=== PATIENT | female | born 1995 | race Caucasian/White ===

== ENCOUNTER 2016-07-17 10:14 | Emergency (ER) | payer MEDICAID ==
[~2016-07-17] VITALS: Ht 170.2 cm; Wt 87.7 kg
[2016-07-17 12:59] LABS: BASOPHIL % 0.1 % (0-2); PLATELET COUNT 277 x10^3mcL (130-400)
[2016-07-17 13:12] LABS: CALCIUM 8.6 mg/dL (8.5-10.1); CARBON DIOXIDE 27.3 mmol/L (21-32); CHLORIDE SERUM 103 mmol/L (98-107); CREATININE SERUM 0.7 mg/dL (0.6-1.0); GFR1 > 60 mL/min; GLUCOSE SERUM 95 mg/dL (74-106); POTASSIUM SERUM 3.2 mmol/L (3.5-5.1); SODIUM SERUM 140 mmol/L (136-145)
[2016-07-17 13:18] LABS: ALBUMIN 4.1 g/dL (3.4-5.0); ALKALINE PHOSPHATASE 62 U/L (46-116); ALT/SGPT 21 U/L (14-59); AMYLASE 29 U/L (25-115); AST/SGOT 16 U/L (15-37); BILIRUBIN TOTAL 0.99 mg/dL (0.20-1.00); LIPASE 87 IU/L (73-393); TOTAL PROTEIN, SERUM 7.8 g/dL (6.4-8.2)
[2016-07-17 13:34] LABS: UA SPECIFIC GRAVITY 1.025 (1.005-1.035); microscopic required? YES; urine erythrocyte 3+ (NEGATIVE)
[2016-07-17 13:45] VITALS: BP 122/76
== END 2016-07-17 15:20 | disposition home or self-care (01) ==
LOC: ED 10:14
PROVIDERS: Emergency Medicine
DX: R10.9 Unspecified abdominal pain (principal); M54.9 Dorsalgia, unspecified; E87.6 Hypokalemia; R11.0 Nausea; R68.83 Chills (without fever)
CPT/HCPCS: 83880; J1885; J7030

== ENCOUNTER 2016-10-20 01:37 | Emergency (ER) | payer SELFPAY ==
[2016-10-20 02:43] LABS: BASOPHIL % 1.8 % (0-2); PLATELET COUNT 341 x10^3mcL (130-400); RED CELL DISTRIBUTION WIDTH 12.6 % (11.5-14.5)
[2016-10-20 02:45] LABS: CALCIUM 8.2 mg/dL (8.5-10.1); CARBON DIOXIDE 24.3 mmol/L (21-32); CHLORIDE SERUM 106 mmol/L (98-107); CREATININE SERUM 0.9 mg/dL (0.6-1.0); GFR1 > 60 mL/min; GLUCOSE SERUM 95 mg/dL (74-106); POTASSIUM SERUM 3.5 mmol/L (3.5-5.1); SODIUM SERUM 140 mmol/L (136-145)
[2016-10-20 02:49] LABS: ALBUMIN 3.7 g/dL (3.4-5.0); ALKALINE PHOSPHATASE 49 U/L (46-116); ALT/SGPT 18 U/L (14-59); AMYLASE 34 U/L (25-115); AST/SGOT 15 U/L (15-37); BILIRUBIN TOTAL 0.47 mg/dL (0.20-1.00); LIPASE 165 IU/L (73-393)
[2016-10-20 03:09] LABS: microscopic required? NO
[2016-10-20 03:18] LABS: UA SPECIFIC GRAVITY <=1.005 (1.005-1.035); urine erythrocyte NEGATIVE (NEGATIVE)
[2016-10-20 04:14] VITALS: BP 141/91
== END 2016-10-20 04:14 | disposition home or self-care (01) ==
LOC: ED 01:37
PROVIDERS: Emergency Medicine
DX: O26.891 Other specified pregnancy related conditions, first trimester (principal); M54.5 Low back pain; Z3A.00 Weeks of gestation of pregnancy not specified
CPT/HCPCS: 36415

== ENCOUNTER 2017-11-29 22:09 | Emergency (ER) | payer MEDICAID ==
[~2017-11-29] VITALS: Ht 170.2 cm; Wt 92.1 kg
[2017-11-29 22:15] VITALS: Ht 170.2 cm; Wt 92.1 kg
[2017-11-29 23:07] LABS: microscopic required? NO
[2017-11-29 23:10] LABS: CALCIUM 8.7 mg/dL (8.5-10.1); CARBON DIOXIDE 28.8 mmol/L (21-32); CHLORIDE SERUM 106 mmol/L (98-107); CREATININE SERUM 0.7 mg/dL (0.6-1.0); GFR1 > 60 mL/min; GLUCOSE SERUM 109 mg/dL (74-106); POTASSIUM SERUM 3.5 mmol/L (3.5-5.1); SODIUM SERUM 141 mmol/L (136-145)
[2017-11-29 23:15] LABS: ALBUMIN 3.6 g/dL (3.4-5.0); ALKALINE PHOSPHATASE 82 U/L (46-116); ALT/SGPT 25 U/L (14-59); AST/SGOT 18 U/L (15-37); BILIRUBIN TOTAL 0.4 mg/dL (0.20-1.00)
[2017-11-29 23:17] LABS: BASOPHIL % 0.5 % (0-2); PLATELET COUNT 281 x10^3mcL (130-400)
[2017-11-29 23:18] LABS: UA SPECIFIC GRAVITY >=1.030 (1.005-1.035); urine erythrocyte NEGATIVE (NEGATIVE)
[2017-11-29 23:20] LABS: RED CELL DISTRIBUTION WIDTH 16.9 % (11.5-14.5)
[2017-11-30 00:21] VITALS: BP 126/73
== END 2017-11-30 00:44 | disposition home or self-care (01) ==
LOC: ED 22:09
PROVIDERS: Emergency Medicine
DX: N20.1 Calculus of ureter (principal); R30.0 Dysuria
CPT/HCPCS: J1885; J2405; J7030

== ENCOUNTER 2018-04-05 18:04 | Emergency (ER) | payer MEDICAID ==
[~2018-04-05] VITALS: Ht 170.2 cm; Wt 91.6 kg
[2018-04-05 18:12] VITALS: Ht 170.2 cm; Wt 91.6 kg
[2018-04-05 18:33] LABS: microscopic required? NO
[2018-04-05 18:47] LABS: urine erythrocyte NEGATIVE (NEGATIVE)
[2018-04-05 18:49] LABS: BASOPHIL % 0.7 % (0-2); PLATELET COUNT 278 x10^3mcL (130-400)
[2018-04-05 18:50] LABS: RED CELL DISTRIBUTION WIDTH 15.5 % (11.5-14.5)
[2018-04-05 19:00] LABS: CALCIUM 8.3 mg/dL (8.5-10.1); CARBON DIOXIDE 28.2 mmol/L (21-32); CHLORIDE SERUM 106 mmol/L (98-107); CREATININE SERUM 0.7 mg/dL (0.6-1.0); GFR1 > 60 mL/min; GLUCOSE SERUM 108 mg/dL (74-106); POTASSIUM SERUM 3.8 mmol/L (3.5-5.1); SODIUM SERUM 142 mmol/L (136-145)
[2018-04-05 19:05] LABS: ALBUMIN 3.5 g/dL (3.4-5.0); ALKALINE PHOSPHATASE 75 U/L (46-116); ALT/SGPT 17 U/L (14-59); AST/SGOT 13 U/L (15-37); BILIRUBIN TOTAL 0.4 mg/dL (0.20-1.00); LIPASE 132 IU/L (73-393); TOTAL PROTEIN, SERUM 7.1 g/dL (6.4-8.2)
[2018-04-05 20:06] VITALS: BP 117/86
== END 2018-04-05 20:06 | disposition home or self-care (01) ==
LOC: ED 18:04
PROVIDERS: Emergency Medicine
DX: R10.12 Left upper quadrant pain (principal); R05 Cough; Z90.49 Acquired absence of other specified parts of digestive tract; Z87.442 Personal history of urinary calculi; Z98.890 Other specified postprocedural states
CPT/HCPCS: 36415

== ENCOUNTER 2018-08-14 12:38 | Emergency (ER) | payer MEDICAID ==
[~2018-08-14] VITALS: Ht 170.2 cm; Wt 93.9 kg
[2018-08-14 12:43] VITALS: Ht 170.2 cm; Wt 93.9 kg
[2018-08-14 13:40] VITALS: BP 125/72
== END 2018-08-14 13:40 | disposition home or self-care (01) ==
LOC: ED 12:38
DX: R21 Rash and other nonspecific skin eruption (principal); L29.9 Pruritus, unspecified; Z90.49 Acquired absence of other specified parts of digestive tract; Z87.442 Personal history of urinary calculi; Z98.890 Other specified postprocedural states

== ENCOUNTER 2019-04-29 14:09 | Emergency (ER) | payer MEDICAID ==
[~2019-04-29] VITALS: Ht 170.2 cm; Wt 101.2 kg
[2019-04-29 14:18] VITALS: BP 137/74; Ht 170.2 cm; Wt 101.2 kg
[2019-04-29 15:55] LABS: BASOPHIL % 0.7 % (0-2); PLATELET COUNT 305 x10^3mcL (130-400); RED CELL DISTRIBUTION WIDTH 13.2 % (11.5-14.5)
[2019-04-29 16:10] LABS: CALCIUM 8.2 mg/dL (8.5-10.1); CARBON DIOXIDE 28.4 mmol/L (21-32); CHLORIDE SERUM 106 mmol/L (98-107); CREATININE SERUM 0.5 mg/dL (0.6-1.0); GFR1 > 60 mL/min; GLUCOSE SERUM 92 mg/dL (74-106); POTASSIUM SERUM 4.1 mmol/L (3.5-5.1); SODIUM SERUM 141 mmol/L (136-145)
[2019-04-29 16:13] LABS: ALBUMIN 3.8 g/dL (3.4-5.0); ALKALINE PHOSPHATASE 56 U/L (46-116); ALT/SGPT 27 U/L (14-59); AST/SGOT 16 U/L (15-37); BILIRUBIN TOTAL 0.4 mg/dL (0.20-1.00); LIPASE 151 IU/L (73-393); TOTAL PROTEIN, SERUM 7.3 g/dL (6.4-8.2)
== END 2019-04-29 17:51 | disposition home or self-care (01) ==
LOC: ED 14:09
PROVIDERS: Emergency Medicine
DX: R11.2 Nausea with vomiting, unspecified (principal); R42 Dizziness and giddiness; Z90.49 Acquired absence of other specified parts of digestive tract; Z98.890 Other specified postprocedural states; Z87.442 Personal history of urinary calculi
CPT/HCPCS: 36415